=== PATIENT | male | born 1985 | race African-American/Black ===

== ENCOUNTER 2019-10-19 09:57 | Inpatient (IN) ==
[2019-10-19] MEDS ORDERED: SENOKOT PO PRN (15:45)
[2019-10-19] MEDS ORDERED: ROBAXIN PO PRN (15:45)
[2019-10-19] MEDS ORDERED: MOTRIN PO PRN (15:45)
[2019-10-19] MEDS ORDERED: DESYREL PO PRN (15:45)
[2019-10-19] MEDS ORDERED: DULCOLAX PR PRN (15:45)
[2019-10-19] MEDS ORDERED: IMODIUM PO PRN (15:45)
[2019-10-19] MEDS ORDERED: MAALOX PLUS LIQUID PO PRN (15:45)
[2019-10-19] MEDS ORDERED: TYLENOL PO PRN (15:45)
[2019-10-19] MEDS ORDERED: BENTYL PO PRN (15:45)
[2019-10-19] MEDS ORDERED: NICODERM PATCH TD PRN (15:45)
[2019-10-19] MEDS ORDERED: ZOFRAN IV PRN (15:45)
[2019-10-19] MEDS ORDERED: ZOFRAN ODT PO PRN (15:45)
[2019-10-19] MEDS ORDERED: PHENOBARBITAL IV PRN (15:45)
[2019-10-19] MEDS ORDERED: D5W 1,000 ML IV PRN (15:45)
[2019-10-19] MEDS ORDERED: SALINE LOCK IV FLUID XX ONE (15:45)
[2019-10-19] MEDS ORDERED: TUBERSOL ID ONE (15:45)
[2019-10-19] MEDS: LIBRIUM PO SCH ×2 (16:31→21:02)
[2019-10-19 16:33] LABS: HEMATOCRIT 44.9 % (42.0-52.0); HEMOGLOBIN 15.1 g/dL (14.0-18.0); MCH 29.9 PG (27-31); MCHC 33.6 g/dL (33-37); MCV 88.9 FL (81-99); MPV 10.7 FL (7.4-10.4); RBC 5.05 XMIL (4.7-6.1); RDW 14.9 % (11.5-14.5); WBC 6.48 X1000 (4.8-10.8)
[2019-10-19 16:47] LABS: INR 0.94
[2019-10-19 16:49] LABS: AMYLASE 67 U/L (20-200); LIPASE 27 U/L (13-60)
[2019-10-19 16:51] LABS: AGAP 18; ALBUMIN 4.8 g/dL (3.5-5.0); ALKALINE PHOSPHATASE 73 U/L (32-122); BUN 7 mg/dL (8-22); CALCIUM 8.6 mg/dL (8.8-10.2); CHLORIDE 102 mmol/L (98-107); COSMO 277; CREATININE 0.7 mg/dL (0.7-1.2); ESTIMATED GFR > 60; GLUCOSE 85 mg/dL (70-104); GOT 68 U/L (10-34); GPT 47 U/L (10-44); POTASSIUM 4.1 mmol/L (3.5-5.1); SODIUM 140 mmol/L (136-145); TCO2 20 mmol/L (25-35); TOTAL PROTEIN 8.7 g/dL (6.3-8.3)
--- NOTE | 2019-10-19 16:55 | HISTORY AND PHYSICAL ---
CHIEF COMPLAINT: Nausea and vomiting. HISTORY OF PRESENT ILLNESS: The patient is a 34-year-old male who [facility] secondary to nausea, vomiting, and abdominal pain. States he has been drinking heavily. He has been trying to stop. Notes he has had blackouts that were alcohol related. Denies any current fevers or chills or chest pain. SOCIAL HISTORY: The patient is single. He works at [employer]. He does have a chronic tobacco history. PAST MEDICAL HISTORY: Significant only for hypertension. As noted, he has had a history of blackouts that were alcohol related. He has a history of blood in his stool that also was felt to be alcohol related. He has chronic anxiety. MEDICATIONS: Bystolic 10 mg. ALLERGIES: Ibuprofen causing the lips to swell. REVIEW OF SYSTEMS: CIWA score is 31 secondary to moderate tremors with his arms extended. He complains of dripping and drenching sweats at times. He has to change his bed clothes frequently. He complains of moderate anxiety, restlessness, fidgety, anxious, unable sit still, easily startled, and decreased oral intake. He has had some nausea with intermittent dry heaves. He has had increased sensitivity to light. He does have a history of auditory and visual hallucinations if his withdrawal continues. Denies any fevers, chills, headaches, blurry vision, change in vision. Denies any focalized numbness, tingling, or weakness in his extremities. Denies dysuria, urinary frequency, constipation, melena, or hematochezia currently. SUBSTANCE ABUSE HISTORY: The patient was in [facility] in 2014 and then [facility] 3 months. He stayed sober for 6 months. [facility] 2019 [facility]; relapsed on the plane home. Does have a history of DUIs x2. Has had financial and health-related problems secondary to his alcohol. Started drinking as early as age 21. Currently drinks greater than 12 beers a day for the last month with liquor added occasionally. Started marijuana at 21, currently uses rarely. Started depressants, Ativan, at 26; last use was early in 2019. Started smoking at 21, currently smokes 2 to 3 cigarettes a day. FAMILY HISTORY: Noncontributory. PHYSICAL EXAMINATION: VITAL SIGNS: Reviewed and stable. GENERAL: The patient is awake, alert. He is in no current respiratory distress. HEENT: Normocephalic. NECK: Supple. CARDIOVASCULAR: Regular rate. CHEST: Clear. ABDOMEN: Soft, nondistended. EXTREMITIES: Moves all extremities. NEUROLOGIC: No focal changes. SKIN: Warm, dry. No rashes. The patient is awake, alert. He is pleasant. He is fidgety on exam and has to be redirected to answer questions. ASSESSMENT: 1. Nausea and vomiting. 2. Abdominal pain. 3. Myalgias. 4. Tremors. 5. Paresthesias. 6. Paroxysmal sweating. 7. Alcohol abuse withdrawal and stabilization with history of blackouts as well as auditory and visual hallucination. PLAN: We are going to continue counseling, place him in the hospital, place him on high-dose Librium taper, and we will follow. cc: Guanakito Eveertt MD
[2019-10-19] MEDS ORDERED: M.V.I.-12 10 ML, FOLIC ACID 1 MG, MAGNESIUM SULFATE 1 GM, THIAMINE 100 MG in NS 1,000 ML IV ONE (17:00)
[2019-10-19] MEDS: SEROQUEL PO PRN (21:02)
[2019-10-19] MEDS: ATARAX PO PRN (23:14)
[2019-10-20] MEDS: LIBRIUM PO SCH ×4 (03:04→22:30)
[2019-10-20 04:48] LABS: URINE SOURCE CLEAN CATCH
[2019-10-20 04:49] LABS: BILIRUBIN URINE NEGATIVE (NEGATIVE); BLOOD URINE NEGATIVE (NEGATIVE); COLOR YELLOW; GLUCOSE URINE NEGATIVE (NEGATIVE); KETONE URINE NEGATIVE (NEGATIVE); LEUKOCYTES URINE NEGATIVE (NEGATIVE); NITRITE URINE NEGATIVE (NEGATIVE); PH URINE 5.5; PROTEIN URINE NEGATIVE (NEGATIVE); SP GRAVITY URINE 1.017; TURBIDITY URINE CLEAR (CLEAR); UROBILINOGEN URINE NORMAL (NORMAL)
[2019-10-20 04:51] LABS: UR EPITHELIAL CELLS <10 /HPF (<10); URINE BACTERIA NEGATIVE /HPF; URINE RBC <10 /HPF (<10); URINE WBC <10 /HPF (<10)
[2019-10-20 05:10] LABS: UR AMPHETAMINES QUAL NONE DETECTED (NONE DETECT); UR BARBITUATES QUAL NONE DETECTED (NONE DETECT); UR BENZODIAZEPIN QUAL PRESUMPTIVE POSITIVE (NONE DETECT); UR CANNABINOIDS QUAL NONE DETECTED (NONE DETECT); UR COCAINE QUAL NONE DETECTED (NONE DETECT); UR METHADONE QUAL NONE DETECTED (NONE DETECT); UR METHAMPHETAMINE QUAL NONE DETECTED (NONE DETECT); UR OPIATES QUAL NONE DETECTED (NONE DETECT); UR OXYCODONE QUAL NONE DETECTED (NONE DETECT); UR PCP QUAL NONE DETECTED (NONE DETECT); UR PROPOXYPHENE QUAL NONE DETECTED (NONE DETECT); UR TCA QUAL NONE DETECTED (NONE DETECT)
[2019-10-20] MEDS: ATARAX PO PRN (06:07)
[2019-10-20] MEDS: PROTONIX PO SCH (06:07)
[2019-10-20] MEDS: THERA M PLUS PO SCH (09:52)
[2019-10-20] MEDS: FOLIC ACID PO SCH (09:52)
[2019-10-20] MEDS: VITAMIN B-1 PO SCH (09:52)
--- NOTE | 2019-10-20 16:26 | PROGRESS NOTE ---
DATE: 10/20/2019 SUBJECTIVE: The patient notes that he is feeling a lot better. He denies any tremors. He says that his muscle aches have improved and his nausea has improved. He is hoping that he is going to be able to eat breakfast. PHYSICAL EXAMINATION: Vital Signs: Reviewed. General: He is awake and alert. He is in no respiratory distress. HEENT: Normocephalic. Neck: Supple. CV: Regular rate. Chest: Clear. Abdomen: Soft, nondistended, and nontender. Extremities: He moves all extremities. ASSESSMENT: 1. Nausea and vomiting. 2. Abdominal pain. 3. Myalgias. 4. Tremors. 5. Paresthesias. 6. Paroxysmal sweating. 7. Alcohol abuse withdrawal and stabilization. PLAN: We will continue the patient in the hospital. We will continue to wean Librium. Discussed with him medication-assisted therapy, i.e. Vivitrol versus naltrexone, and we will follow. cc: Guanakito Everett MD
[2019-10-20] MEDS: SEROQUEL PO PRN (22:30)
[2019-10-21] MEDS: LIBRIUM PO SCH ×2 (04:13→10:08)
[2019-10-21 07:31] VITALS: BP 138/94
[2019-10-21] MEDS: PROTONIX PO SCH (08:01)
[2019-10-21] MEDS: THERA M PLUS PO SCH (10:08)
[2019-10-21] MEDS: FOLIC ACID PO SCH (10:08)
[2019-10-21] MEDS: VITAMIN B-1 PO SCH (10:08)
[2019-10-21] MEDS ORDERED: REVIA PO SCH (11:30)
[2019-10-21] MEDS ORDERED: LIBRIUM PO SCH (14:00)
--- NOTE | 2019-10-28 19:56 | DISCHARGE SUMMARY ---
ADMISSION DATE: 10/19/2019 DISCHARGE DATE: 10/21/2019 DISCHARGE DIAGNOSES: 1. Nausea and vomiting. 2. Abdominal pain. 3. Myalgias. 4. Tremors. 5. Paresthesias. 6. Alcohol abuse, withdrawal and stabilization. 7. Hypertension. CONSULTATIONS: None. PROCEDURES: None. BRIEF HOSPITAL COURSE: The patient was admitted to the hospital secondary to nausea, vomiting, abdominal pain, myalgias, and paresthesias. She was admitted, treated in usual fashion, and placed on high-dose Librium taper. Counseling was performed each day by myself. The patient, thankfully, had an uneventful hospital course. She was admitted and treated the usual fashion, placed on high-dose Librium taper. Counseling was performed each day by myself. DISPOSITION: On discharge, the patient is awake, alert. She is oriented. She is in no distress. She is having no further withdrawal symptoms. The patient will be discharged home. She will follow up outpatient with treatment facility of choice. Discussed patient use medication assisted therapy. Discussed that she needs outpatient life counseling as well as alcohol counseling. She needs a sponsor he needs to avoid persons, places and situations, which she has been drinking in the past. TOTAL CARE TIME: Greater than 30 minutes spent in total care. cc: Guanakito Everett MD
== END 2019-10-21 13:00 | disposition home or self-care (01) ==
LOC: P.DIRADM 14:37 → P.MEDSURG 14:43
PROVIDERS: ADMIT Family Medicine; ATTEND Family Medicine